=== PATIENT | male | born 1995 | race Caucasian/White ===

== ENCOUNTER 2024-12-25 09:37 | Emergency (ER) | payer OTHER ==
[~2024-12-25] VITALS: Ht 188 cm; Wt 100.1 kg
[2024-12-25 11:30] VITALS: BP 159/89; TEMP 97.9; O2SAT 100
== END 2024-12-25 11:32 | disposition home or self-care (01) ==
LOC: M ED 09:37
DX: S90.31XA Contusion of right foot, initial encounter (principal); Y92.9 Unspecified place or not applicable; Y93.9 Activity, unspecified; Y99.9 Unspecified external cause status; W20.8XXA Other cause of strike by thrown, projected or falling object, initial encounter; Z88.8 Allergy status to other drugs, medicaments and biological substances; Z91.040 Latex allergy status